=== PATIENT | female | born 1985 | race Native Hawaiian/Other Pacific Islander ===

== ENCOUNTER 2017-10-23 17:14 | Emergency (ER) | payer OTHER ==
[~2017-10-23] VITALS: Ht 162.6 cm; Wt 88.5 kg
[2017-10-23 17:32] VITALS: TEMP 97.9
[2017-10-23 18:42] LABS: PLATELET COUNT 276 K/uL (152-353)
[2017-10-23 18:47] LABS: POTASSIUM 3.7 mmol/L (3.6-5.2)
[2017-10-23 19:54] VITALS: BP 120/78
== END 2017-10-23 19:55 | disposition home or self-care (01) ==
LOC: ED 17:14
DX: N20.1 Calculus of ureter (principal); K59.00 Constipation, unspecified; N39.0 Urinary tract infection, site not specified
CPT/HCPCS: 36415; 74022; 80053; 81000; 85027; 87077; 87086; 87088; 87186; 99283